=== PATIENT | female | born 1980 | race Caucasian/White ===

== ENCOUNTER 2021-10-07 17:31 | Emergency (ER) | payer OTHER ==
[~2021-10-07] VITALS: Ht 203.2 cm; Wt 160.1 kg
[2021-10-07] MEDS ORDERED: LIPITOR40 MG PO (18:08)
[2021-10-07] MEDS ORDERED: LAMOTRIGINE300 MG PO (18:08)
[2021-10-07] MEDS ORDERED: ALLOPURINOL100 MG PO (18:10)
[2021-10-07] MEDS ORDERED: COZAAR100 MG PO (18:10)
[2021-10-07] MEDS ORDERED: LISINOPRIL20 MG PO (18:10)
[2021-10-07] MEDS ORDERED: METFORMIN HCL1000 MG PO (18:10)
[2021-10-07] MEDS ORDERED: PREDNISONE20 MG PO (18:11)
== END 2021-10-07 18:24 | disposition home or self-care (01) ==
LOC: ED 17:31
DX: M70.71 Other bursitis of hip, right hip (principal)
CPT/HCPCS: 99283; A9270; J7512